=== PATIENT | male | born 1945 | race Caucasian/White ===

== ENCOUNTER 2019-09-05 13:30 | Day surgery (SDC) | payer MEDICARE, OTHER ==
[~2019-09-05] VITALS: Ht 162.6 cm; Wt 93.2 kg
[~2019-09-05 13:30] MED LIST: ALBU90OI INH; ALLEGRA ALLERG180 MG PO; Advair Hfa 230-12 GM; LISI20 PO; Omeprazole20 M1 PO; Prilosec Otc20 MG PO
== END 2019-09-05 15:19 | disposition home or self-care (01) ==
LOC: ORSCSDS 13:30
PROVIDERS: Student in an Organized Health Care Education/Training Program
PROC: 0DBL8ZX Excision of Transverse Colon, Via Natural or Artificial Opening Endoscopic, Diagnostic (ICD-10-PCS; principal; 2019-09-05 14:45)
PROC: 0DBN8ZX Excision of Sigmoid Colon, Via Natural or Artificial Opening Endoscopic, Diagnostic (ICD-10-PCS; principal; 2019-09-05 14:45)
DX: Z12.11 Encounter for screening for malignant neoplasm of colon (principal); D12.3 Benign neoplasm of transverse colon; K63.5 Polyp of colon; K57.30 Diverticulosis of large intestine without perforation or abscess without bleeding; K64.8 Other hemorrhoids; I10 Essential (primary) hypertension; E78.5 Hyperlipidemia, unspecified; G47.33 Obstructive sleep apnea (adult) (pediatric); K21.9 Gastro-esophageal reflux disease without esophagitis; J45.909 Unspecified asthma, uncomplicated; E66.9 Obesity, unspecified; Z68.35 Body mass index [BMI] 35.0-35.9, adult; Z79.899 Other long term (current) drug therapy
CPT/HCPCS: 88305; J2250; J2704; J7120

== ENCOUNTER 2021-11-05 08:57 | Day surgery (SDC) | payer MEDICARE, OTHER ==
[~2021-11-05] VITALS: Ht 165.1 cm; Wt 105.9 kg
[2021-11-05] MEDS ORDERED: ASPIR 8181 M1 PO (09:24)
[2021-11-05] MEDS ORDERED: HYDROCHLOROTH12.5 MG PO (09:26)
[2021-11-05] MEDS ORDERED: METO25ER PO (09:27)
[2021-11-05] MEDS ORDERED: NITR.4SL SL (09:27)
[2021-11-05] MEDS ORDERED: Crestor20 MG PO (09:28)
[2021-11-05] MEDS ORDERED: VALA500 PO (09:28)
--- NOTE | 2021-11-05 15:53 | NUR ---
PT DRESSED, TR BAND REMOVED, DRSSGN PLACED R RADIAL, R WRIST SPLINT, R ARM SLING PLACED, PT AMB TO BTR WELL, IV DC'D INTACT, PT CHOOSES TO AMB OUT OF HC, DRIVING PT HOME
== END 2021-11-05 15:45 | disposition home or self-care (01) ==
LOC: MHTC 08:57
DX: I25.118 Atherosclerotic heart disease of native coronary artery with other forms of angina pectoris (principal); I10 Essential (primary) hypertension; J45.909 Unspecified asthma, uncomplicated; K21.9 Gastro-esophageal reflux disease without esophagitis; E78.5 Hyperlipidemia, unspecified; G47.33 Obstructive sleep apnea (adult) (pediatric); Z79.899 Other long term (current) drug therapy
CPT/HCPCS: 76937; 85347; 92978; 93454; 99152; 99153; A9270; C1725; C1753; C1769; C1874; C1887; C9600; J1644; J2250; J3010; J7030; J7040; Q9967

== ENCOUNTER → 2023-01-03 | Outpatient (CLI) | payer MEDICARE, OTHER ==
[~2023-01-03] MED LIST changes: +ASPIR 8181 M1 PO; +BRILINTA90 M7 PO; +Ciloxan5 ML OP; +Crestor20 MG PO; +HYDROCHLOROTH12.5 MG PO; +METO25ER PO; +NITR.4SL SL; +Nitroglycerin1 EAC3 TOP; +ROSU5 PO; +VALA500 PO
== END | disposition home or self-care (01) ==
LOC: LAB SHORT 14:44 → PLD 14:44
DX: D10.1 Benign neoplasm of tongue (principal)
CPT/HCPCS: 88305; 88312